=== PATIENT | male | born 1985 | race Caucasian/White ===

== ENCOUNTER 2022-01-03 20:10 | Emergency (ER) | payer OTHER ==
[2022-01-03] MEDS: Lidocaine 1% 5 ML VIAL INJECT ONE (20:45)
[2022-01-03] MEDS: Diphtheria,Pertussis(Acell),Tetanus Vaccine 0.5 ML Syringe IM ONE (21:15)
[2022-01-03] MEDS: Bacitracin/Neomycin/Polymyxin B Oint 0.9 GM U/D Packet TOP ONE (21:34)
== END 2022-01-03 21:45 | disposition home or self-care (01) ==
LOC: CC.ED 20:10
DX: S01.511A Laceration without foreign body of lip, initial encounter (principal); S01.81XA Laceration without foreign body of other part of head, initial encounter; Z23 Encounter for immunization; W50.3XXA Accidental bite by another person, initial encounter
CPT/HCPCS: 12011; 90471; 90715; 99282-25; 99283